=== PATIENT | male | born 2000 | race Two or more races ===

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

== ENCOUNTER 2022-07-18 20:09 | Emergency (ER) | payer SELFPAY ==
[2022-07-18] MEDS ORDERED: Prochlorperazine 10 MG/2 ML SDV IVPUSH ONE (22:23)
[2022-07-18] MEDS ORDERED: Dexamethasone 10 MG/ML SDV IVPUSH ONE (22:23)
[2022-07-18] MEDS ORDERED: Sodium Chloride 0.9% 10 ML Syringe FLUSH PRN (22:23)
[2022-07-18] MEDS ORDERED: Sodium Chloride 0.9% 1,000 ML IV ONE (22:23)
[2022-07-18] MEDS ORDERED: Acetaminophen 500 MG Tab PO ONE (22:23)
[2022-07-18] MEDS ORDERED: Sodium Chloride 0.9% 2.5 ML Syringe FLUSH PRN (22:23)
[2022-07-18] MEDS ORDERED: Ketorolac 30 MG/ML SDV IVPUSH ONE (22:23)
[2022-07-18 22:54] LABS: CORONAVIRUS COVID-19 NAA NEGATIVE (NEGATIVE); INFLUENZA A NAA NEGATIVE (NEGATIVE); INFLUENZA B NAA NEGATIVE (NEGATIVE)
[2022-07-18 23:33] LABS: CARBON DIOXIDE,CO2 25.1 mmol/L (21.0-32.0); POTASSIUM,K 3.7 mmol/L (3.5-5.1)
== END 2022-07-18 23:55 | disposition home or self-care (01) ==
LOC: MW.ED 20:09
DX: B34.9 Viral infection, unspecified (principal); Z20.822 Contact with and (suspected) exposure to COVID-19
CPT/HCPCS: 0240U; 36415; 71046; 80048; 85025; 87070; 87880; 96374; 96375; 99284; A9270; J0780; J1100; J1885; J7030

== ENCOUNTER 2024-04-01 20:56 | Emergency (ER) | payer OTHER, BC | END 2024-04-01 22:13 | disposition home or self-care (01) | LOC: MW.ED 20:56 | DX: S80.11XA Contusion of right lower leg, initial encounter (principal); Z75.8 Other problems related to medical facilities and other health care; V49.50XA Passenger injured in collision with unspecified motor vehicles in traffic accident, initial encounter; Y92.410 Unspecified street and highway as the place of occurrence of the external cause | CPT/HCPCS: 73552-26-LT; 73552-RT; 99284 ==